=== PATIENT | female | born 1995 | race Caucasian/White ===

== ENCOUNTER 2024-07-12 20:39 | Emergency (ER) | payer SELFPAY ==
--- NOTE | 2024-07-12 20:40 | ED_ITS ---
HPI - Dental/Oral General Chief complaint: Dental/Oral Stated complaint: dental Time Seen by Provider: 07/12/24 20:40 Source: patient Mode of arrival: ambulatory Limitations: no limitations History of Present Illness HPI Narrative: 28-year-old female presents to the ED with a 2 week history of -- right lower wisdom tooth pain. She saw her primary care physician and got clindamycin. Her pain improved but came back today. She took oxycodone 5 mg which she had left over from a previous infection. No fever. MD Complaint: tooth pain Location: Tooth # (32) Onset (ago): week(s) ( Two weeks) Duration: constant Severity: severe Relieving factors: nothing Exacerbating factors: cold and heat Context: history of dental caries Treatment prior to arrival: other ( 2 tablets of oxycodone 5 mg) Related Data Allergies Allergy/AdvReac Type Severity Reaction Status Date / Time hydromorphone (From Dilaudid) AdvReac Severe Migraine Verified 07/12/24 20:56 morphine AdvReac Severe Migraine Verified 07/12/24 20:56 Review of Systems Review of Systems: All systems reviewed & are unremarkable except as noted in HPI and below PMFSH Past Medical History Medical History (Updated 07/12/24 @ 20:57 by Cristino Nelson MD) Dental caries Exam Narrative: afebrile. vitals are stable Const: General: healthy appearing Nutritional Appearance: well nourished Orientation/consciousness: patient oriented x3 Limitations: no limitations HENMT: Head: normal to inspection Ears: external ears normal Face/Nose/Sinus: Normal external nose present Face and sinus: normal facial exam Mouth: Yes Normal oral and palatal mucosa present Teeth and gingiva: abnormal tooth and associated gingiva Other: patient has chronic bilateral upper 3rd molar infection with tooth breakdown. She presents with right lower 3rd molar pain Eyes: Conjunctivae: conjunctivae normal Pupils: Equal, round and reactive pupils present EOM: EOMs intact bilaterally Direct Ophthalmoscopy: no ph otophobia Neck: Neck: normal visual inspection, no lymphadenopathy and no meningeal signs Chest: Chest palpation & inspection: normal inspection of the chest Resp: Effort & Inspection: normal respiratory effort Auscultation: clear to auscultation bilaterally Cardio: Rate: regular rate Rhythm: regular rhythm GI: GI Palp: Yes Soft to palpation Auscultation: normal bowel sounds Other: no tenderness/ rigidity /rebound. : General: Yes no CVA tenderness Back/Spine/Pelvis: Back: no CVA tenderness Skin: General skin exam: normal color Rashes: no rashes Wounds: no wounds Neuro: General: patient oriented x3, moves all extremities, no meningeal signs, no focal motor deficits and CN's II-XI intact bilaterally Cranial nerves: Yes Nystagmus not present Speech: normal speech Gait exam (Neuro): Normal gait present Extrem: General: normal to inspection and no clubbing, cyanosis or edema Psych: Mental Status: mental status grossly normal Affect: normal affect Attitude: cooperative Course Course Emergency Course: Dental pain/ dental caries pain right lower 3rd molar Vital Signs Vital signs: Vital Signs Temperature 36.6 C 07/12/24 20:41 Pulse Rate 109 H 07/12/24 20:41 Respiratory Rate 18 07/12/24 20:41 Blood Pressure 151/80 H 07/12/24 20:41 Pulse Oximetry 98 07/12/24 20:41 Oxygen Delivery Room Air 07/12/24 20:41 Temperature 36.6 C 07/12/24 20:41 Pulse Rate 109 H 07/12/24 20:41 Respiratory Rate 18 07/12/24 20:41 Blood Pressure 151/80 H 07/12/24 20:41 Pulse Oximetry 98 07/12/24 20:41 Oxygen Delivery Room Air 07/12/24 20:41 MDM - Dental/Oral MDM Narrative Medical decision making narrative: dental pain /dental caries-- right lower 3rd molar Differential Diagnosis Differential diagnosis: Likely dental caries, toothache and dental abscess Discharge Plan Discharge Clinical Impression: Dental caries, Toothache Patient Disposition: Home, Self-Care Condition: Stable Instructions: Antibiotic Form, Dental Abscess (ED), Toothache (ED) Patient Language: German Prescriptions: New clindamycin HCl 300 mg capsule 300 mg PO Q8H 7 Days Qty: 21 0RF Follow-up/Referrals: UNKNOWN,DOCTOR [Primary Care Provider] - Stand Alone Forms: Work/School Release IP Time of Disposition: 21:01
[2024-07-12 20:41] VITALS: BP 151/80; PULSE 109; RESP 18; TEMP 36.6; O2SAT 98
[2024-07-12] MEDS: oxyCODONE/ACETAMINOPHEN (*CRX) 5-325 MG TABLET 1 TABLET PO (21:19)
[2024-07-12] MEDS: CLINDAMYCIN HCL 150 MG CAP 300 MG PO (21:20)
[2024-07-12] MEDS: KETOROLAC 30 MG/ML VIAL (*BKC) IM (21:53)
[2024-07-12 22:00] VITALS: BP 150/90; PULSE 108; RESP 18; TEMP 36; O2SAT 100
[2024-07-12 23:23] VITALS: BP 135/80; PULSE 92; RESP 18; TEMP 36.6; O2SAT 100
== END 2024-07-12 23:23 | disposition home or self-care (01) ==
PROVIDERS: Emergency Provider Internal Medicine Critical Care Medicine
DX: K02.9 Dental caries, unspecified (principal); K08.89 Other specified disorders of teeth and supporting structures
CPT/HCPCS: 96372; 99283; A9270; J1885